=== PATIENT | female | born 1945 | race Caucasian/White ===

== ENCOUNTER 2024-04-18 09:23 | Outpatient (CLI) | payer MEDICARE ==
[2024-04-18] MEDS ORDERED: Iopamidol 370 76% 100 ML VIAL ONE (13:09)
== END 2024-04-18 09:24 | disposition home or self-care (01) ==
LOC: CT 09:23
PROVIDERS: ATTEND Internal Medicine Gastroenterology
DX: Z12.11 Encounter for screening for malignant neoplasm of colon (principal); R10.13 Epigastric pain; M47.816 Spondylosis without myelopathy or radiculopathy, lumbar region; I70.0 Atherosclerosis of aorta; I25.10 Atherosclerotic heart disease of native coronary artery without angina pectoris; I70.8 Atherosclerosis of other arteries
CPT/HCPCS: 74177; Q9967

== ENCOUNTER 2024-06-01 08:51 | Outpatient (CLI) | payer MEDICARE | END 2024-06-01 08:52 | disposition home or self-care (01) | LOC: SCSMRI 08:51 | PROVIDERS: ATTEND Internal Medicine Gastroenterology | DX: R10.13 Epigastric pain (principal); N28.1 Cyst of kidney, acquired; I70.0 Atherosclerosis of aorta; I35.0 Nonrheumatic aortic (valve) stenosis; N94.89 Other specified conditions associated with female genital organs and menstrual cycle | CPT/HCPCS: 36415; 74183; 76376; 82565 ==

== ENCOUNTER 2025-06-05 12:46 | Outpatient (CLI) | payer MEDICARE | END 2025-06-05 12:47 | disposition home or self-care (01) | LOC: SCSMRI 12:46 | PROVIDERS: ATTEND Family Medicine | DX: M54.16 Radiculopathy, lumbar region (principal); M48.061 Spinal stenosis, lumbar region without neurogenic claudication; M48.07 Spinal stenosis, lumbosacral region | CPT/HCPCS: 72148 ==